=== PATIENT | female | born 1970 | race Hispanic/Latino ===

== ENCOUNTER 2020-08-28 01:04 | Observation (INO) | payer OTHER ==
[2020-08-28 01:53] LABS: BASE EXCESS,VENOUS BLOOD GAS -4.8 (-2.0-3.0); HCO3,VENOUS BLOOD GAS 19.8 (21.0-28.0); PCO2,VENOUS BLOOD GAS 35 (32-45); PH,VENOUS BLOOD GAS 7.366 (7.350-7.450)
[2020-08-28] MEDS ORDERED: DiphenhydrAMINE HCL 50 MG/ML VIAL ONE (02:01)
[2020-08-28 02:07] LABS: BASOPHILS % (AUTO) 0.5 % (0.0-5.0); EOSINOPHILS % (AUTO) 1.6 % (0.0-8.0); HEMATOCRIT 41.8 % (36-48); MEAN CORPUSCULAR HEMOGLOBIN 30.5 pg (27.0-33.0); MEAN CORPUSCULAR HGB CONC 34.7 g/dL (32.0-36.0); MEAN CORPUSCULAR VOLUME 87.8 fL (79-99); MONOCYTES % (AUTO) 5.9 % (3.0-13.0); NEUTROPHILS % (AUTO) 55.8 % (40.0-77.0); PLATELET COUNT (AUTO) 295 K/uL (130-400); RED BLOOD CELL COUNT(AUTO) 4.76 MIL/uL (4.00-5.50); RED CELL DISTRIBUTION WIDTH 11.7 % (11.0-15.5); WHITE BLOOD COUNT (AUTO) 10.2 K/uL (4.8-10.8)
[2020-08-28 02:16] LABS: ALBUMIN 3.5 g/dL (3.5-5.0); BILIRUBIN,TOTAL 0.3 mg/dL (0.2-1.0); CREATININE 1.3 mg/dL (0.5-1.5); MAGNESIUM 2.4 mg/dL (1.80-2.40); POTASSIUM 4.8 mmol/L (3.5-5.1); TOTAL PROTEIN, SERUM 7.9 g/dL (6.0-8.3)
[2020-08-28 02:19] LABS: INR 0.88 (0.85-1.15); PARTIAL THROMBOPLASTIN TIME 23.3 SEC (26.3-35.5); PROTHROMBIN TIME 9.5 SEC (9.6-11.6)
[2020-08-28] MEDS ORDERED: INSULIN HUMULIN R 100 UNIT/ML 3ML ONE (02:55)
[2020-08-28] MEDS ORDERED: LACTULOSE 20 GM/30 ML UDCUP PO PRN (03:45)
[2020-08-28] MEDS ORDERED: SODIUM CHLORIDE 0.9% 1000ML 1,000 ML IV SCH (03:45)
[2020-08-28] MEDS ORDERED: ACETAMINOPHEN 325 MG TAB PO PRN ×2 (03:45)
[2020-08-28] MEDS ORDERED: ONDANSETRON HCL 4 MG/2 ML VIAL IV PRN (03:45)
[2020-08-28] MEDS ORDERED: HYDRALAZINE HCL 20 MG/ML VIAL IV PRN (03:45)
[2020-08-28 03:54] LABS: HEMOGLOBIN A1C 10.9 % (4.0-6.0)
[2020-08-28 04:02] LABS: CHOLESTEROL 273 mg/dL (<200); CRP QUANTITATIVE < 2.00 mg/L (0.00-9.0); LDL DIRECT 168 mg/dL (0-99); TRIGLYCERIDES 541 mg/dL (30-200)
[2020-08-28 04:18] LABS: HDL CHOLESTEROL 65 mg/dL (35-85)
[2020-08-28] MEDS ORDERED: INSULIN HUMULIN R 100 UNIT/ML 3ML SQ SCH (07:30)
[2020-08-28] MEDS ORDERED: FAMOTIDINE 20MG TAB 20 MG TAB PO SCH (09:00)
[2020-08-28] MEDS ORDERED: ATORVASTATIN CALCIUM 20 MG TABLET PO SCH (21:00)
== END 2020-08-28 05:35 | disposition left against medical advice (07) ==
LOC: EDH 01:04 → EDHIP 01:05 → 3AH 04:49
PROVIDERS: ADMIT Internal Medicine; ATTEND Internal Medicine
DX: E11.65 Type 2 diabetes mellitus with hyperglycemia (principal); E87.2 Acidosis; E78.5 Hyperlipidemia, unspecified; R25.2 Cramp and spasm; M54.2 Cervicalgia; Z79.899 Other long term (current) drug therapy; Z88.0 Allergy status to penicillin
CPT/HCPCS: 36415; 36600; 70450; 71045; 80053; 80061; 82010; 82550; 82803; 82948; 83036; 83605; 83690; 83735 ×2; 84443; 84484; 85025; 85610; 85651; 85730; 86140; 93005; 99285; G0378 ×2; J1200; J1815